=== PATIENT | female | born 1945 | race Caucasian/White ===

== ENCOUNTER 2019-08-10 10:00 | Outpatient (RCR) | payer BC | END 2019-08-10 10:30 | disposition still patient (30) | LOC: PT 10:00 | DX: S42.202A Unspecified fracture of upper end of left humerus, initial encounter for closed fracture (principal) ==

== ENCOUNTER 2021-04-15 16:34 | Observation (INO) | payer MEDICARE ==
[~2021-04-15] VITALS: Ht 165.1 cm; Wt 92.3 kg
[2021-04-15 16:52] LABS: HEMATOCRIT 45.4 % (37.0-47.0); HEMOGLOBIN 14.7 g/dL (12.5-16.0); MEAN CELL VOLUME 84 fl (78-100); MEAN CORPUSCULAR HEMOGLOBIN 27 pg (27-31); MEAN CORPUSCULAR HGB CONC 32 g/dL (33-37); MEAN PLATELET VOLUME 9.4 fl (7.4-10.4); PLATELET COUNT 330 K/mm3 (130-400); RED BLOOD COUNT 5.39 M/mm3 (4.10-5.30); RED CELL DISTRIBUTION WIDTH 13.8 % (11.5-14.5); WHITE BLOOD COUNT 5.9 K/mm3 (4.8-10.8)
[2021-04-15] MEDS ORDERED: NYSTOP POWDER15 GM TP (17:03)
[2021-04-15] MEDS ORDERED: ALPRAZOLAM0.25 MG PO (17:04)
[2021-04-15] MEDS ORDERED: CELLCEPT500 MG PO (17:05)
[2021-04-15] MEDS ORDERED: ST. JOSEPH ASPI81 M1 PO (17:05)
[2021-04-15] MEDS ORDERED: OLMESARTAN MEDO20 MG PO (17:05)
[2021-04-15] MEDS ORDERED: PAROXETINE HYDR20 MG PO (17:06)
[2021-04-15] MEDS ORDERED: OMEGA-3-ACID ETH1 GM PO (17:06)
[2021-04-15 17:07] LABS: ALBUMIN 4.5 g/dL (3.4-4.8)
[2021-04-15] MEDS ORDERED: ONDANSETRON HYDR4 MG PO (17:07)
[2021-04-15 17:08] LABS: CALCIUM 9.5 mg/dL (8.3-10.5)
[2021-04-15 17:09] LABS: TOTAL PROTEIN 7.6 g/dL (6.2-8.1)
[2021-04-15 17:11] LABS: TOTAL BILIRUBIN 0.8 mg/dL (0.2-1.2)
[2021-04-15 17:26] LABS: POTASSIUM 2.8 mmol/L (3.5-5.1)
[2021-04-15 18:40] LABS: LYMPHOCYTE 4 % (20-51); MONOCYTE 8 % (3-10); NEUTROPHILS 88 % (42-75); TEAR DROP CELLS 2+
[2021-04-15 19:13] LABS: URINE APPEARANCE CLEAR; URINE COLOR YELLOW
[2021-04-15 19:14] LABS: URINE BILIRUBIN NEGATIVE (NEGATIVE); URINE BLOOD NEGATIVE (NEGATIVE); URINE GLUCOSE NEGATIVE (NEGATIVE); URINE KETONE 2+ (NEGATIVE); URINE LEUKOCYTE ESTERASE TRACE (NEGATIVE); URINE MUCUS PRESENT (NOT PRESENT); URINE NITRATE NEGATIVE (NEGATIVE); URINE PROTEIN(semi-quant) 1+ (NEGATIVE); URINE UROBILINOGEN NORMAL (NORMAL)
[2021-04-15 20:40] LABS: LIPASE 9 U/L (8-78)
[2021-04-15 22:00] VITALS: BP 184/100
[2021-04-16 02:12] VITALS: BP 160/90
[2021-04-16 05:20] VITALS: BP 186/98
[2021-04-16 07:48] LABS: BASO # 0.01 K/mm3 (0.02-0.10); EOS # 0.04 K/mm3 (0.04-0.40); EOS % 1.1 % (1.0-5.0); HEMATOCRIT 37.2 % (37.0-47.0); LYMPH# 0.64 K/mm3 (1.50-4.00); MEAN CELL VOLUME 85 fl (78-100); MEAN CORPUSCULAR HEMOGLOBIN 27 pg (27-31); MEAN CORPUSCULAR HGB CONC 32 g/dL (33-37); MEAN PLATELET VOLUME 9.9 fl (7.4-10.4); NEU # 2.51 K/mm3 (1.40-6.50); PLATELET COUNT 287 K/mm3 (130-400); RED BLOOD COUNT 4.39 M/mm3 (4.10-5.30); RED CELL DISTRIBUTION WIDTH 13.8 % (11.5-14.5); WHITE BLOOD COUNT 3.7 K/mm3 (4.8-10.8)
[2021-04-16 07:51] LABS: ALBUMIN 3.5 g/dL (3.4-4.8)
[2021-04-16 07:52] LABS: POTASSIUM 3.3 mmol/L (3.5-5.1)
[2021-04-16 07:53] LABS: CALCIUM 7.9 mg/dL (8.3-10.5)
[2021-04-16 07:54] LABS: TOTAL PROTEIN 5.7 g/dL (6.2-8.1)
[2021-04-16 07:56] LABS: TOTAL BILIRUBIN 0.5 mg/dL (0.2-1.2)
[2021-04-16 09:55] VITALS: BP 182/70
[2021-04-16 14:16] VITALS: BP 161/79
[2021-04-16 18:00] VITALS: BP 183/93
[2021-04-16 21:56] VITALS: BP 176/79
[2021-04-17 01:20] VITALS: BP 191/85
[2021-04-17 05:30] VITALS: BP 193/98
[2021-04-17 07:09] LABS: POTASSIUM 3.2 mmol/L (3.5-5.1)
[2021-04-17 07:10] LABS: CALCIUM 7.9 mg/dL (8.3-10.5)
[2021-04-17] MEDS ORDERED: MAGNESIUM OXID400 M1 PO (10:09)
[2021-04-17 10:10] VITALS: BP 161/94
[2021-04-17] MEDS ORDERED: PANTOPRAZOLE SO40 MG PO (10:10)
[2021-04-17] MEDS ORDERED: PROTONIX TR40 M1 PO (10:14)
[2021-04-17] MEDS ORDERED: BENICAR HCT 12.1 TA1 PO (10:14)
[2021-04-17] MEDS ORDERED: MAGNESIUM400 MG PO (10:15)
[2021-04-17] MEDS ORDERED: EFFER-K20 MEQ PO (10:15)
[2021-04-17 14:06] VITALS: BP 139/81
== END 2021-04-17 14:11 | disposition home health service (06) ==
LOC: ED 16:34 → MED/SURG 20:09
PROVIDERS: Nurse Practitioner; ADMIT Physician Assistant
DX: E87.6 Hypokalemia (principal); R19.7 Diarrhea, unspecified; R11.2 Nausea with vomiting, unspecified; L30.8 Other specified dermatitis; B37.49 Other urogenital candidiasis; I10 Essential (primary) hypertension; K21.9 Gastro-esophageal reflux disease without esophagitis; E83.42 Hypomagnesemia; F41.9 Anxiety disorder, unspecified; Z79.82 Long term (current) use of aspirin; Z79.899 Other long term (current) drug therapy
CPT/HCPCS: G0378; J1650; J2405; J3480; J7517

== ENCOUNTER → 2022-05-03 | Outpatient (CLI) | payer MEDICARE ==
[~2022-05-03] MED LIST: ALPRAZOLAM0.25 MG PO; BACTRIM DS TAB1 EACH PO; BENICAR HCT 12.1 TA1 PO; CELLCEPT500 MG PO; COZAAR100 MG PO; DIFLUCAN100 M1 PO; EFFER-K20 MEQ PO; FEXOFENADINE H180 M1 PO; MACROBID 100 M100 MG PO; MAGNESIUM OXID400 M1 PO; MAGNESIUM400 MG PO; NIZORAL CREAM15 GM TP; NYSTOP POWDER15 GM TP; OLMESARTAN MEDO20 MG PO; OMEGA-3-ACID ETH1 GM PO; ONDANSETRON HYDR4 MG PO; PANTOPRAZOLE SO40 MG PO; PAROXETINE HYDR20 MG PO; PROTONIX TR40 M1 PO; PYRIDIUM100 M1 PO; ST. JOSEPH ASPI81 M1 PO; TYLENOL 325MG325 MG PO; XANAX0.25 M1 PO
[2022-05-03 11:55] LABS: URINE APPEARANCE HAZY; URINE BILIRUBIN NEGATIVE (NEGATIVE); URINE BLOOD 50 ery/uL (NEGATIVE); URINE COLOR YELLOW; URINE GLUCOSE NEGATIVE (NEGATIVE); URINE KETONE NEGATIVE (NEGATIVE); URINE LEUKOCYTE ESTERASE NEGATIVE (NEGATIVE); URINE NITRATE NEGATIVE (NEGATIVE); URINE PROTEIN(semi-quant) TRACE (NEGATIVE); URINE UROBILINOGEN NORMAL (NORMAL)
== END ==
LOC: LAB 10:02
PROVIDERS: Nurse Practitioner
DX: Z00.00 Encounter for general adult medical examination without abnormal findings (principal); Z12.31 Encounter for screening mammogram for malignant neoplasm of breast; Z13.220 Encounter for screening for lipoid disorders; R30.0 Dysuria; R31.29 Other microscopic hematuria; Z13.820 Encounter for screening for osteoporosis; N95.2 Postmenopausal atrophic vaginitis

== ENCOUNTER → 2022-05-11 | Outpatient (CLI) | payer MEDICARE | LOC: MAMMO 13:30 | DX: Z12.31 Encounter for screening mammogram for malignant neoplasm of breast (principal); M85.852 Other specified disorders of bone density and structure, left thigh; Z78.0 Asymptomatic menopausal state ==

== ENCOUNTER → 2022-05-14 | Outpatient (CLI) | payer MEDICARE | LOC: RAD 12:32 | DX: K57.30 Diverticulosis of large intestine without perforation or abscess without bleeding (principal); R31.0 Gross hematuria ==

== ENCOUNTER → 2022-06-02 | Outpatient (CLI) | payer MEDICARE | LOC: LAB 14:07 | DX: R30.0 Dysuria (principal) ==

== ENCOUNTER 2022-11-13 11:15 | Inpatient (IN) | payer MEDICARE ==
[~2022-11-13] VITALS: Ht 165.1 cm; Wt 90.1 kg
[~2022-11-13 11:15] MED LIST changes: +EZETIMIBE10 M1 PO; +PERCOCET 325 MG1 TA2 PO
[2022-11-13] MEDS ORDERED: PROAIR HFA0.09 MG/AC IH (12:16)
[2022-11-13] MEDS ORDERED: LIPITOR 40MG TA40 MG PO (12:18)
[2022-11-13] MEDS ORDERED: COREG12.5 M1 PO (12:20)
[2022-11-13] MEDS ORDERED: B-12500 MC1 PO (12:22)
[2022-11-13] MEDS ORDERED: LIDODERM1 EACH TP (12:24)
[2022-11-13] MEDS ORDERED: VOLTAREN ARTHRI20 GM TP (12:26)
[2022-11-13] MEDS ORDERED: ALDACTONE25 M1 PO (12:28)
[2022-11-13] MEDS ORDERED: PAIN RELIEF EX500 MG PO (12:31)
[2022-11-13] MEDS ORDERED: ELIQUIS2.5 MG PO (12:32)
[2022-11-13] MEDS ORDERED: ASPIRIN E.C. 8181 MG PO (12:34)
[2022-11-13] MEDS ORDERED: CEPHALEXIN500 M1 PO (12:36)
[2022-11-13] MEDS ORDERED: LOSARTAN POTAS100 MG PO (12:39)
[2022-11-13] MEDS ORDERED: EFFER-K 25 MEQ25 MEQ PO (12:39)
[2022-11-13] MEDS ORDERED: MYCOPHENOLATE500 MG PO (12:43)
[2022-11-13] MEDS ORDERED: ROBAXIN 75750 MG/TA1 PO (12:43)
[2022-11-13] MEDS ORDERED: NYSTATIN15 GM TP (12:45)
[2022-11-13] MEDS ORDERED: MIRALAX17 GM PO (12:50)
[2022-11-13] MEDS ORDERED: PREMARIN 0.3MG0.3 MG PO (12:51)
[2022-11-13] MEDS ORDERED: SENEXON-S 50-81 EACH PO (12:54)
[2022-11-13 18:51] LABS: HEMATOCRIT 32.5 % (37.0-47.0); MEAN PLATELET VOLUME 8.8 fl (7.4-10.4); RED BLOOD COUNT 3.54 M/mm3 (4.10-5.30); RED CELL DISTRIBUTION WIDTH 16.9 % (11.5-14.5); WHITE BLOOD COUNT 8.3 K/mm3 (4.8-10.8)
[2022-11-13 18:58] LABS: POTASSIUM 3.7 mmol/L (3.5-5.1)
[2022-11-13 19:00] LABS: CALCIUM 9.4 mg/dL (8.3-10.5)
[2022-11-13 21:00] VITALS: BP 132/73; BP 148/61
[2022-11-13 23:23] LABS: PH-URINE 7.5 (5.0 - 8.0); URINE APPEARANCE HAZY; URINE BILIRUBIN NEGATIVE (NEGATIVE); URINE BLOOD 250 ery/uL (NEGATIVE); URINE COLOR ORANGE; URINE GLUCOSE NEGATIVE (NEGATIVE); URINE KETONE NEGATIVE (NEGATIVE); URINE LEUKOCYTE ESTERASE 2+ (NEGATIVE); URINE NITRATE NEGATIVE (NEGATIVE); URINE PROTEIN(semi-quant) 1+ (NEGATIVE); URINE UROBILINOGEN NORMAL (NORMAL)
[2022-11-14 05:53] VITALS: BP 171/76
[2022-11-14 17:12] VITALS: BP 153/77
[2022-11-15 05:57] VITALS: BP 146/68
[2022-11-15 18:12] VITALS: BP 154/75
[2022-11-16 05:55] VITALS: BP 115/67
[2022-11-16 17:14] VITALS: BP 121/64
[2022-11-17 05:42] VITALS: BP 161/71
[2022-11-17 08:12] LABS: BASO # 0.06 K/mm3 (0.02-0.10); EOS # 0.62 K/mm3 (0.04-0.40); EOS % 8.3 % (1.0-5.0); HEMATOCRIT 32.3 % (37.0-47.0); HEMOGLOBIN 10.1 g/dL (12.5-16.0); LYMPH# 1.18 K/mm3 (1.50-4.00); MEAN CELL VOLUME 92 fl (78-100); MEAN CORPUSCULAR HEMOGLOBIN 29 pg (27-31); MEAN CORPUSCULAR HGB CONC 31 g/dL (33-37); MEAN PLATELET VOLUME 9.6 fl (7.4-10.4); NEU # 4.72 K/mm3 (1.40-6.50); PLATELET COUNT 459 K/mm3 (130-400); RED CELL DISTRIBUTION WIDTH 16.6 % (11.5-14.5); WHITE BLOOD COUNT 7.5 K/mm3 (4.8-10.8)
[2022-11-17 08:16] LABS: ALBUMIN 3.4 g/dL (3.4-4.8); POTASSIUM 4.2 mmol/L (3.5-5.1)
[2022-11-17 08:18] LABS: TOTAL PROTEIN 5.8 g/dL (6.2-8.1)
[2022-11-17 08:20] LABS: TOTAL BILIRUBIN 0.3 mg/dL (0.2-1.2)
[2022-11-17 17:10] VITALS: BP 115/69
[2022-11-18 05:50] VITALS: BP 171/68
[2022-11-18 17:30] VITALS: BP 122/68
[2022-11-19 05:42] VITALS: BP 115/48
[2022-11-19 17:00] VITALS: BP 116/48
[2022-11-20 06:23] VITALS: BP 117/69
[2022-11-20 17:41] VITALS: BP 111/71
[2022-11-21 05:48] VITALS: BP 115/66
[2022-11-21 17:23] VITALS: BP 130/66
[2022-11-22 05:42] VITALS: BP 123/73
[2022-11-22 17:05] VITALS: BP 106/61
[2022-11-23 05:51] VITALS: BP 137/69
[2022-11-23 17:03] VITALS: BP 105/59
[2022-11-24 05:25] VITALS: BP 137/70
[2022-11-24 07:23] LABS: BASO # 0.03 K/mm3 (0.02-0.10); EOS # 0.51 K/mm3 (0.04-0.40); EOS % 8.3 % (1.0-5.0); HEMATOCRIT 34.2 % (37.0-47.0); HEMOGLOBIN 10.9 g/dL (12.5-16.0); LYMPH# 1.73 K/mm3 (1.50-4.00); MEAN CELL VOLUME 90 fl (78-100); MEAN CORPUSCULAR HEMOGLOBIN 29 pg (27-31); MEAN CORPUSCULAR HGB CONC 32 g/dL (33-37); MEAN PLATELET VOLUME 8.9 fl (7.4-10.4); MONO # 0.63 K/mm3 (0.20-0.80); NEU # 3.25 K/mm3 (1.40-6.50); PLATELET COUNT 447 K/mm3 (130-400); RED CELL DISTRIBUTION WIDTH 16.1 % (11.5-14.5); WHITE BLOOD COUNT 6.2 K/mm3 (4.8-10.8)
[2022-11-24 07:31] LABS: ALBUMIN 3.9 g/dL (3.4-4.8); POTASSIUM 4.5 mmol/L (3.5-5.1)
[2022-11-24 07:33] LABS: CALCIUM 9.4 mg/dL (8.3-10.5)
[2022-11-24 07:34] LABS: TOTAL PROTEIN 6.3 g/dL (6.2-8.1)
[2022-11-24 07:36] LABS: TOTAL BILIRUBIN 0.4 mg/dL (0.2-1.2)
[2022-11-24 17:08] VITALS: BP 108/70
[2022-11-25 05:50] VITALS: BP 108/56; BP_SYST 109
[2022-11-25 17:12] VITALS: BP 127/74
[2022-11-26 05:53] VITALS: BP 109/64
[2022-11-26 17:08] VITALS: BP 147/73
[2022-11-27 05:59] VITALS: BP 136/83
[2022-11-27 17:52] VITALS: BP 121/69
[2022-11-28 05:41] VITALS: BP 133/88
[2022-11-28 17:30] VITALS: BP 120/70
[2022-11-29 05:46] VITALS: BP 104/53
== END 2022-11-29 11:30 | disposition home health service (06) | DRG 948 ==
LOC: MED/SURG 11:15
PROVIDERS: Family Medicine; ADMIT Family Medicine
DX: R53.81 Other malaise (principal); I10 Essential (primary) hypertension; I25.2 Old myocardial infarction; C67.1 Malignant neoplasm of dome of bladder; I25.10 Atherosclerotic heart disease of native coronary artery without angina pectoris; G70.00 Myasthenia gravis without (acute) exacerbation; J45.909 Unspecified asthma, uncomplicated; D64.9 Anemia, unspecified; E78.5 Hyperlipidemia, unspecified; Z95.5 Presence of coronary angioplasty implant and graft; Z93.6 Other artificial openings of urinary tract status; Z90.49 Acquired absence of other specified parts of digestive tract; Z90.710 Acquired absence of both cervix and uterus; Z88.0 Allergy status to penicillin; Z88.1 Allergy status to other antibiotic agents
CPT/HCPCS: J7517

== ENCOUNTER → 2023-06-08 | Outpatient (CLI) | payer MEDICARE, BC ==
[~2023-06-08] MED LIST changes: +ALDACTONE25 M1 PO; +ASPIRIN E.C. 8181 MG PO; +B-12500 MC1 PO; +CEPHALEXIN500 M1 PO; +COREG12.5 M1 PO; +EFFER-K 25 MEQ25 MEQ PO; +ELIQUIS2.5 MG PO; +LIDODERM1 EACH TP; +LIPITOR 40MG TA40 MG PO; +LOSARTAN POTAS100 MG PO; +MIRALAX17 GM PO; +MYCOPHENOLATE500 MG PO; +NYSTATIN15 GM TP; +PAIN RELIEF EX500 MG PO; +PREMARIN 0.3MG0.3 MG PO; +PROAIR HFA0.09 MG/AC IH; +ROBAXIN 75750 MG/TA1 PO; +SENEXON-S 50-81 EACH PO; +VOLTAREN ARTHRI20 GM TP
== END ==
LOC: MAMMO 14:20
DX: Z12.31 Encounter for screening mammogram for malignant neoplasm of breast (principal)

== ENCOUNTER → 2023-11-30 | Outpatient (CLI) | payer MEDICARE, BC ==
[2023-11-30 11:38] LABS: BASO # 0.03 K/mm3 (0.02-0.10); EOS # 0.45 K/mm3 (0.04-0.40); EOS % 5.1 % (1.0-5.0); HEMATOCRIT 41.4 % (37.0-47.0); HEMOGLOBIN 12.9 g/dL (12.5-16.0); LYMPH# 1.91 K/mm3 (1.50-4.00); MEAN CELL VOLUME 86 fl (78-100); MEAN CORPUSCULAR HEMOGLOBIN 27 pg (27-31); MEAN CORPUSCULAR HGB CONC 31 g/dL (33-37); MEAN PLATELET VOLUME 8.7 fl (7.4-10.4); MONO # 0.76 K/mm3 (0.20-0.80); NEU # 5.61 K/mm3 (1.40-6.50); PLATELET COUNT 408 K/mm3 (130-400); RED BLOOD COUNT 4.81 M/mm3 (4.10-5.30); RED CELL DISTRIBUTION WIDTH 14.4 % (11.5-14.5); WHITE BLOOD COUNT 8.8 K/mm3 (4.8-10.8)
== END ==
LOC: LAB 11:26
PROVIDERS: Family Medicine
DX: N95.0 Postmenopausal bleeding (principal)

== ENCOUNTER → 2024-01-23 | Outpatient (CLI) | payer MEDICARE, BC ==
[2024-01-23 11:54] LABS: BASO # 0.02 K/mm3 (0.02-0.10); EOS # 0.36 K/mm3 (0.04-0.40); EOS % 5.3 % (1.0-5.0); HEMOGLOBIN 11.8 g/dL (12.5-16.0); LYMPH# 1.07 K/mm3 (1.50-4.00); MEAN CELL VOLUME 89 fl (78-100); MEAN CORPUSCULAR HEMOGLOBIN 28 pg (27-31); MEAN CORPUSCULAR HGB CONC 31 g/dL (33-37); MEAN PLATELET VOLUME 8.7 fl (7.4-10.4); MONO # 0.57 K/mm3 (0.20-0.80); NEU # 4.69 K/mm3 (1.40-6.50); PLATELET COUNT 444 K/mm3 (130-400); RED BLOOD COUNT 4.29 M/mm3 (4.10-5.30); RED CELL DISTRIBUTION WIDTH 15.3 % (11.5-14.5); WHITE BLOOD COUNT 6.7 K/mm3 (4.8-10.8)
[2024-01-23 12:08] LABS: ALBUMIN 4.5 g/dL (3.4-4.8)
[2024-01-23 12:09] LABS: CALCIUM 9.4 mg/dL (8.3-10.5)
[2024-01-23 12:11] LABS: TOTAL PROTEIN 6.9 g/dL (6.2-8.1)
[2024-01-23 12:12] LABS: TOTAL BILIRUBIN 0.5 mg/dL (0.2-1.2)
--- NOTE | 2024-01-23 12:18 | NUR ---
jun walked to Dr Glez office and layed on her desk.
== END ==
LOC: LAB 11:35
PROVIDERS: Family Medicine
DX: Z01.89 Encounter for other specified special examinations (principal)

== ENCOUNTER → 2024-02-08 | Outpatient (CLI) | payer MEDICARE, BC ==
[2024-02-08 18:06] LABS: BASO # 0.04 K/mm3 (0.02-0.10); EOS # 0.36 K/mm3 (0.04-0.40); EOS % 4.9 % (1.0-5.0); HEMOGLOBIN 12.1 g/dL (12.5-16.0); LYMPH# 1.41 K/mm3 (1.50-4.00); MEAN CELL VOLUME 89 fl (78-100); MEAN CORPUSCULAR HEMOGLOBIN 28 pg (27-31); MEAN CORPUSCULAR HGB CONC 31 g/dL (33-37); MEAN PLATELET VOLUME 8.9 fl (7.4-10.4); MONO # 0.66 K/mm3 (0.20-0.80); NEU # 4.82 K/mm3 (1.40-6.50); PLATELET COUNT 417 K/mm3 (130-400); RED CELL DISTRIBUTION WIDTH 15.2 % (11.5-14.5); WHITE BLOOD COUNT 7.3 K/mm3 (4.8-10.8)
[2024-02-08 18:35] LABS: D-DIMER 0.36 mg/L FEU (0.15-0.50)
== END ==
LOC: LAB 17:44
PROVIDERS: Nurse Practitioner Family
DX: R22.41 Localized swelling, mass and lump, right lower limb (principal)

== ENCOUNTER → 2024-06-28 | Outpatient (CLI) | payer BC | LOC: MAMMO 13:30 | DX: Z12.31 Encounter for screening mammogram for malignant neoplasm of breast (principal); Z13.820 Encounter for screening for osteoporosis ==

== ENCOUNTER → 2024-06-28 | Outpatient (CLI) | payer BC | LOC: RAD 13:55 → MAMMO 14:00 | DX: Z13.820 Encounter for screening for osteoporosis (principal); Z12.31 Encounter for screening mammogram for malignant neoplasm of breast; M85.852 Other specified disorders of bone density and structure, left thigh; Z78.0 Asymptomatic menopausal state ==